=== PATIENT | female | born 1990 | race Hispanic/Latino ===

== ENCOUNTER 2018-06-21 08:54 | Outpatient (CLI) | payer BC ==
--- NOTE | 2018-06-21 10:27 | ULT ---
ABDOMINAL ULTRASOUND: Date: 06-21-18 Provided Clinical History: Abnormal laboratory values. FINDINGS: The visualized abdominal aorta, IVC, and pancreas appear normal. The liver is enlarged measuring abou t 21.5 cm in craniocaudal dimension at the right hepatic lobe. There is diffusely increased echogenic ity involving the hepatic parenchyma compatible with fatty infiltration. There is no evidence for mas s or intrahepatic biliary ductal dilatation. The common duct is not dilated. The gallbladder demonstrates gallstone without evidence for wall thic kening or pericholecystic fluid. Sonographic Dill's sign is negative. Kidneys demonstrate no hydronephrosis or mass. Spleen is not enlarged and demonstrates no focal abnormality. IMPRESSION: 1. Hepatomegaly and hepatic steatosis. 2. Cholelithiasis. POS: Jolene
== END 2018-06-21 08:55 | disposition home or self-care (01) ==
LOC: BICULT 08:54
PROVIDERS: ATTEND Family Medicine
DX: R10.84 Generalized abdominal pain (principal); K80.20 Calculus of gallbladder without cholecystitis without obstruction; K76.0 Fatty (change of) liver, not elsewhere classified
CPT/HCPCS: 76700

== ENCOUNTER 2018-07-04 16:12 | Outpatient (CLI) | payer BC ==
--- NOTE | 2018-07-04 17:16 | HP ---
HISTORY OF PRESENT ILLNESS: Cheryl Hansen is a 27-year-old female referred by Dr. Alex De La Garza for symptomatic cholelithiasis. She is morbidly obese. She is 241 pounds, 5 feet and 2 inches. Recent gallbladder ultrasound revealing gallstones, fatty liver. No intrahepatic ductal dilatation and recent laboratories on 04/06/2018, hemoglobin 11, white count 9. On 06/06/2018, basic metabolic profile normal, [facility] labs, liver function tests essentially normal. ALLERGIES: NONE. SOCIAL HISTORY: Tobacco, none. Alcohol, none. PAST SURGICAL HISTORY: LEEP procedure. PAST MEDICAL HISTORY: PCOS; HPV; prediabetes; and hypertension, borderline. MEDICATIONS: 1. Lexapro. 2. Effexor. 3. Phentermine. ALLERGIES: NONE. PHYSICAL EXAMINATION: VITAL SIGNS: Weight 241 pounds, height 5 feet and 2 inches. Blood pressure 135/89, heart rate 109, temperature 98.6 degrees. HEAD, EARS, EYES, NOSE, AND THROAT: Unremarkable. Sclerae are nonicteric. LUNGS: Clear to auscultation. CARDIAC: Regular rate and rhythm without murmur or gallop. ABDOMEN: Soft, obese, and nontender. SKIN: Nonjaundiced. EXTREMITIES: Unremarkable. ASSESSMENT AND PLAN: Symptomatic cholelithiasis. We recommend laparoscopic video cholecystectomy. Risks of infection, bleeding, visceral and biliary injury, and open procedure were discussed. Questions were answered. Job ID: [id number]
[2018-07-04 18:16] LABS: BHCG - Serum Negative (NEGATIVE); Pregs Control Background? CLEAR/WHITE (CLR/WHITE); Pregs Control Bar Appear? YES (CONTROL BAR)
[2018-07-04 18:25] LABS: Anion Gap 15 mmol/L (10-20); BUN (Urea Nitrogen) 11 mg/dL (7.0-18.7); Calc. Creatinine Clearance 0 mL/min (70-130); Calcium 9.6 mg/dL (7.8-10.44); Carbon Dioxide 23 mmol/L (22-29); Chloride 101 mmol/L (98-107); Estimated GFR-MDRD Greater than 90; Glucose 95 mg/dL (70-105); Potassium 3.7 mmol/L (3.5-5.1); Sodium 135 mmol/L (136-145)
--- NOTE | 2018-07-05 17:52 | EKG ---
Test Reason : Blood Pressure : / mmHG Vent. Rate : 095 BPM Atrial Rate : 095 BPM P-R Int : 140 ms QRS Dur : 072 ms QT Int : 354 ms P-R-T Axes : 030 049 018 degrees QTc Int : 444 ms Normal sinus rhythm Normal ECG No previous ECGs available Confirmed by CHRIS DIAZ ([id number]) on 07/05/2018 5:51:53 PM Referred By: DAMIR Confirmed By:CHRIS DIAZ
== END 2018-07-04 16:13 | disposition home or self-care (01) ==
LOC: LABBT 16:12
PROVIDERS: ATTEND Specialist
DX: Z01.818 Encounter for other preprocedural examination (principal); K80.10 Calculus of gallbladder with chronic cholecystitis without obstruction
CPT/HCPCS: 80048; 84703; 93005; 93010

== ENCOUNTER 2018-07-06 06:57 | Day surgery (SDC) | payer BC ==
[2018-07-04 17:13] VITALS: BMI 44.0
[2018-07-06] MEDS ORDERED: Ketorolac Tromethamine 30 MG/ML VIAL ONE (08:18)
[2018-07-06] MEDS ORDERED: CEFAZOLIN 2 GM/50 ML BAG ONE (08:18)
[2018-07-06] MEDS ORDERED: Scopolamine 1.5 mg/72 hour Patch ONE (08:40)
[2018-07-06] MEDS ORDERED: Fentanyl 100 MCG/2 ML VIAL ONE ×3 (09:27→11:32)
[2018-07-06] MEDS ORDERED: Bupivacaine HCl 0.5%/Epinephrine 1:200,000/PF 30 ml Vial ONE (09:30)
[2018-07-06] MEDS ORDERED: traMADol HCl 50 MG TAB ONE (12:33)
--- NOTE | 2018-07-06 13:36 | OP ---
DATE OF PROCEDURE: 07/06/2018 PREOPERATIVE DIAGNOSES: 1. Chronic cholecystitis. 2. Cholelithiasis. 3. Morbid obesity. 4. Fatty liver. POSTOPERATIVE DIAGNOSES: 1. Chronic cholecystitis. 2. Cholelithiasis. 3. Morbid obesity. 4. Fatty liver. PROCEDURE PERFORMED: Laparoscopic video cholecystectomy. ANESTHESIA: General, local of 0.5% Marcaine with epinephrine. DESCRIPTION OF PROCEDURE: The patient was taken to the operating room, where under general anesthesia, abdomen was prepared with ChloraPrep and draped in routine fashion. Local anesthetic was infiltrated in the skin and subcutaneous tissue at each port site. Supraumbilical incision was made. Pneumoperitoneum to 15 mmHg was obtained with a Veress needle, replaced with a 5 port where laparoscope was inserted. A right subxiphoid incision was made and an 11 port was placed. A right subcostal incision was made, midclavicular and anterior axillary line, the 5 port was placed. The liver was very fatty. Fundus was grasped at the cephalad exposing the infundibulum of the gallbladder which was grasped and reflected laterally. Cystic artery and duct were carefully dissected free. Critical view was obtained. Cystic artery and duct double-clipped proximally and divided and gallbladder was dissected free, obtaining good hemostasis in the liver bed prior to division of the final peritoneal attachments. Gallbladder and contents were removed and submitted to Pathology. Good hemostasis was assured with cautery. Irrigant and pneumoperitoneum were evacuated. All instruments were removed, and all skin incisions were approximated with interrupted subdermal 4-0 Monocryl and [place] glue applied. Job ID: [id number]
== END 2018-07-06 12:53 ==
LOC: SDC 06:57
PROVIDERS: ATTEND Specialist
PROC: 0FT44ZZ Resection of Gallbladder, Percutaneous Endoscopic Approach (ICD-10-PCS; principal; 2018-07-06)
DX: K80.10 Calculus of gallbladder with chronic cholecystitis without obstruction (principal); K76.0 Fatty (change of) liver, not elsewhere classified; I10 Essential (primary) hypertension; R03.0 Elevated blood-pressure reading, without diagnosis of hypertension; R73.03 Prediabetes; E28.2 Polycystic ovarian syndrome; E66.01 Morbid (severe) obesity due to excess calories; Z68.41 Body mass index [BMI] 40.0-44.9, adult; Z79.899 Other long term (current) drug therapy
CPT/HCPCS: 88304; 96374; J0131; J0670; J1885; J3010